=== PATIENT | female | born 1940 | race Caucasian/White ===

== ENCOUNTER 2020-04-13 18:22 | Emergency (ER) | payer MEDICARE ==
[~2020-04-13] VITALS: Ht 170.2 cm; Wt 64.0 kg
[~2020-04-13 18:22] MED LIST: ACET325T26 PO; ATEN25TA PO; DONE5TAB14 PO; FLUT9.9S16 NS; LISI-167 PO; POTA20TA6 PO; QUET25TA70 PO; RISP0.253 PO; SIMV20TA19 PO; VENL25TA PO
[2020-04-13 18:25] VITALS: BP 150/68
--- NOTE | 2020-04-13 18:35 | NUR ---
THIS IS A 79 YO F BIB EMS FROM [facility]. PER EMS, [facility] REPORTS PT WAS UNCOOPERATIVE W/ ISOLATION GUIDELINES. EMS REPORTS PT IS COVID +. PT WAS DC FROM THIS FACILITY YESTERDAY. PT IS A&OX1 AT BASELINE. PT CONNECTED TO ALL MONITORING, VSS, NADN. PT RESTING ON TrepUp W/ CALL LIGHT IN REACH. BLANKET PROVIDED FRO COMFORT. AWAITING ED EVAL.
--- NOTE | 2020-04-13 18:45 | NUR ---
SPOKE W/ JUAN RN FROM [facility]. SHE REPORTS PT TESTED POSTIVE FOR COVID ON 04/02/20.
[2020-04-13] MEDS ORDERED: LISI-167 PO (18:50)
[2020-04-13] MEDS ORDERED: POTA20TA6 PO (18:50)
--- NOTE | 2020-04-13 19:05 | NUR ---
PT TRANSPORTED TO [facility]/ WORKING SIDE RAILS. PT RESTING ON [facility] W/ DU BOIS LIGHT IN REACH, RESP EVEN AND UNLABORED, NADN. AWAITING ED EVAL. REPORT GIVEN TO HARLEEN RAYO.
--- NOTE | 2020-04-13 19:12 | NUR ---
Report received from PERRI Trevino. This RN to assume care. Awaiting ERP orders.
[2020-04-13 20:24] LABS: BASOPHILS # (AUTO) 0.03 x10^3/uL (0-0.1); BASOPHILS % (AUTO) 0 % (0-1); EOSINOPHILS # (AUTO) 0.14 x10^3/uL (0-0.4); EOSINOPHILS % (AUTO) 2 % (1-7); LYMPHOCYTES # (AUTO) 2.96 x10^3/uL (1-3.4); LYMPHOCYTES % (AUTO) 45 % (22-44); MD NO; MEAN CORPUSCULAR HEMOGLOBIN 28.8 pg (27.0-34.8); MEAN CORPUSCULAR HGB CONC 33.2 g/dL (32.4-35.8); MEAN PLATELET VOLUME 7.9 fL (7.4-10.4); MONOCYTES # (AUTO) 0.49 x10^3/uL (0.2-0.8); MONOCYTES % (AUTO) 7 % (2-9); NEUTROPHILS # (AUTO) 3.03 x10^3/uL (1.8-6.8); NEUTROPHILS % (AUTO) 46 % (42-75); PLATELET COUNT 225 x10^3/uL (130-400); RED BLOOD COUNT 5.07 x10^6/uL (3.82-5.3); RED CELL DISTRIBUTION WIDTH 13.5 % (9.6-15.2)
[2020-04-13] MEDS ORDERED: HALOPERIDOL 5 MG TABLET PO ONE (20:30)
[2020-04-13 20:31] LABS: ANION GAP 6 mmol/L (5-15); CALCIUM 8.3 mg/dL (8.5-10.1); CHLORIDE 110 mmol/L (98-107); CREATININE 0.83 mg/dL (0.55-1.02)
[2020-04-13] MEDS ORDERED: POTASSIUM CHLORIDE 20 MEQ TAB.ER.PRT PO ONE (21:00)
--- NOTE | 2020-04-13 21:10 | NUR ---
Patient to be discharged; arranging transport for patient.
[2020-04-13] MEDS ORDERED: POTASSIUM CHLORIDE 20 MEQ TAB.ER.PRT ONE (22:18)
--- NOTE | 2020-04-13 22:43 | NUR ---
Discharge packet given to CASTILLO. Spoke with Jackie at [facility]. All questions and concerns addressed. Patient ambulatory with a steady gait. Belongings with patient.
== END 2020-04-13 22:45 | disposition home or self-care (01) ==
LOC: ED 20:25
DX: F03.91 Unspecified dementia, unspecified severity, with behavioral disturbance (principal); E87.6 Hypokalemia; N39.0 Urinary tract infection, site not specified
CPT/HCPCS: 36415; 80048; 85025; 99283

== ENCOUNTER 2020-04-17 21:10 | Emergency (ER) | payer MEDICARE ==
[~2020-04-17] VITALS: Ht 167.6 cm; Wt 64.0 kg
[2020-04-17] MEDS ORDERED: LIDOCAINE-MPF 1%, 5ML INFIL ONE ×2 (21:30)
[2020-04-17] MEDS ORDERED: L.E.T SOLUTION TP ONE ×2 (21:30)
--- NOTE | 2020-04-17 21:34 | NUR ---
REPORT RECIEVED FROM PERRI DON. PT ANA CHONG FROM [facility] C/O LAC TO LEFT FA. PER EMS PER DAUGHTER PT IS NORMALLY VERY CONFUSED BUT HER SPEECH IS NORMALLY CLEAR, PT'S SPEECH DIDN'T SOUND RIGHT ON PHONE AROUND NOON TODAY. PT WAS LAST KNOWN "NORMAL" TWO DAYS AGO. + COVID TEST TWO WEEKS. COVID TEST REPEATED . UNK RESULTS FROM THAT TEST. FS 113. ALL MONITORING IN PLACE. 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 ERP TO ROOM FOR EVAL.
[2020-04-17] MEDS ORDERED: LIDOCAINE-MPF 1%, 5ML ONE (21:36)
--- NOTE | 2020-04-17 21:38 | NUR ---
PATIENT TO CT
--- NOTE | 2020-04-17 21:50 | NUR ---
LET applied at 2150
--- NOTE | 2020-04-17 21:54 | NUR ---
BJ GURJIT- DAUGHTER AND POA [phone]
[2020-04-17 22:10] LABS: BASOPHILS # (AUTO) 0.03 x10^3/uL (0-0.1); BASOPHILS % (AUTO) 0 % (0-1); EOSINOPHILS # (AUTO) 0.07 x10^3/uL (0-0.4); EOSINOPHILS % (AUTO) 1 % (1-7); LYMPHOCYTES # (AUTO) 1.77 x10^3/uL (1-3.4); LYMPHOCYTES % (AUTO) 19 % (22-44); MD NO; MEAN CORPUSCULAR HEMOGLOBIN 28.7 pg (27.0-34.8); MEAN CORPUSCULAR HGB CONC 32.9 g/dL (32.4-35.8); MEAN CORPUSCULAR VOLUME 87.3 fL (80-100); MEAN PLATELET VOLUME 7.7 fL (7.4-10.4); MONOCYTES # (AUTO) 0.77 x10^3/uL (0.2-0.8); MONOCYTES % (AUTO) 8 % (2-9); NEUTROPHILS # (AUTO) 6.87 x10^3/uL (1.8-6.8); NEUTROPHILS % (AUTO) 72 % (42-75); PLATELET COUNT 203 x10^3/uL (130-400); RED BLOOD COUNT 4.89 x10^6/uL (3.82-5.3); RED CELL DISTRIBUTION WIDTH 14.1 % (9.6-15.2)
[2020-04-17 22:15] LABS: ALANINE AMINOTRANSFERASE 19 U/L (12-78); ALBUMIN 3.2 g/dL (3.4-5.0); ANION GAP 8 mmol/L (5-15); CALCIUM 7.9 mg/dL (8.5-10.1); CHLORIDE 110 mmol/L (98-107)
[2020-04-17 22:20] LABS: ALKALINE PHOSPHATASE 42 U/L (45-117); BILIRUBIN,TOTAL 0.4 mg/dL (0.2-1.0); TOTAL PROTEIN 6.5 g/dL (6.4-8.2); TROPONIN I < 0.015 ng/mL (0.000-0.045)
[2020-04-17] MEDS ORDERED: POTASSIUM CHLORIDE 20 MEQ TAB.ER.PRT PO ONE (22:30)
[2020-04-17] MEDS ORDERED: POTASSIUM CHLORIDE 20 MEQ TAB.ER.PRT ONE (22:40)
--- NOTE | 2020-04-17 22:57 | NUR ---
REPORT GIVEN TO PERRI MURILLO. PLAN OF CARE DISCUSSED. SUTURES PLACED BY AMRITA MONTOYA. PATIENT TOLERATED WELL.
--- NOTE | 2020-04-17 23:15 | NUR ---
Note stuartone in EDM - 04/17/20 at 2316 by JACIEL REPORT CALLED TO LYDIA RAYO. PT AGREEABLE WITH PLAN OF CARE. DNR SIGNED PER PT AFTER DISCUSSION WITH DR. RODRIGUEZ AND PT'S . 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 96% ON 2L. PROVIDED DINNER AND WATER.
--- NOTE | 2020-04-17 23:39 | NUR ---
PT RESTING AND AWAITING TRANSPORT.
[2020-04-18 00:05] VITALS: BP 140/77
== END 2020-04-18 00:10 | disposition home or self-care (01) ==
LOC: ED 21:29
DX: S06.0X0A Concussion without loss of consciousness, initial encounter (principal); S01.111A Laceration without foreign body of right eyelid and periocular area, initial encounter; G30.1 Alzheimer's disease with late onset; F02.80 Dementia in other diseases classified elsewhere, unspecified severity, without behavioral disturbance, psychotic disturbance, mood disturbance, and anxiety; R94.31 Abnormal electrocardiogram [ECG] [EKG]; I10 Essential (primary) hypertension; W01.0XXA Fall on same level from slipping, tripping and stumbling without subsequent striking against object, initial encounter; Y93.89 Activity, other specified; Y92.009 Unspecified place in unspecified non-institutional (private) residence as the place of occurrence of the external cause; Y99.8 Other external cause status
CPT/HCPCS: 12011; 36415; 70450; 80053; 84484; 85025; 93005; 99284; 99285